=== PATIENT | male | born 1975 | race Caucasian/White ===

== ENCOUNTER 2016-10-08 13:11 | Inpatient (IN) | payer SELFPAY ==
[2016-10-08] VITALS: BP 104/55
[~2016-10-08] VITALS: Ht 182.9 cm; Wt 105.1 kg
[2016-10-08 14:28] LABS: BASOPHILS 0.2 % (0-2); EOSINOPHILS 0.7 % (0-7); HEMOGLOBIN 12.7 g/dL (13.5-17.5); IMMATURE GRANULOCYTES 0.6 % (0-5); LYMPHOCYTES 19.4 % (15-50); MCH 30.2 pg (26.0-34.0); MCHC 33.4 g/dL (31.0-37.0); MCV 90.5 fL (80.0-100.0); MEAN PLATELET VOLUME 11.6 fL (7.4-10.4); MONOCYTES 6.4 % (2-11); NEUTROPHILS 72.7 % (40-80); RDW 14.2 % (11.5-14.5); WBC 15.2 10x3/uL (4.8-10.8)
[2016-10-08 14:29] LABS: PLATELET COUNT 286 10x3/uL (130-400)
[2016-10-08 14:50] LABS: ALBUMIN 4.1 g/dL (3.4-5.0); ANION GAP 19.9 mmol/L (8-16); BILIRUBIN - TOTAL 0.44 mg/dL (0.2-1.3); CALCIUM 9.5 mg/dL (8.5-10.1); CARBON DIOXIDE 20.5 mmol/L (21.0-32.0); CREATININE - SERUM 5.2 mg/dL (0.6-1.3); POTASSIUM - SERUM 5.4 mmol/L (3.5-5.1); PROTEIN - SERUM 8.6 g/dL (6.4-8.2)
[2016-10-08 14:55] LABS: APPEARANCE CLEAR (CLEAR); BILIRUBIN NEGATIVE (NEGATIVE); COLOR YELLOW (YELLOW); GLUCOSE NEGATIVE (NEGATIVE); KETONE NEGATIVE (NEGATIVE); LEUKOCYTE ESTERASE TRACE (NEGATIVE); NITRITE NEGATIVE (NEGATIVE); PROTEIN NEGATIVE (NEGATIVE); SPECIFIC GRAVITY 1.025 (1.005-1.020); UROBILINOGEN NORMAL (NORMAL)
[2016-10-08 14:56] LABS: RED CELLS - URINE 0-5 /hpf (0-5); WHITE CELLS - URINE 0-5 /hpf (0-5)
[2016-10-08 14:57] LABS: BACTERIA MANY /hpf (NONE SEEN)
--- NOTE | 2016-10-08 17:35 | NUR ---
ER NURSE ATTEMPTED TO CALL REPORT HOWEVER ROOM IS NOT STRIPPED OR CLEANED OR READY TO HOLD A PT. POLITELY ASKED NURSED IF I COULD CALL WHEN ROOM WAS READY AND PT STATED "WELL IM DEALING WITH A [facility] PT RIGHT NOW SO I DONT KNOW WHEN I WILL EVEN HAVE TIME" AND THEN PROCEDED TO HANG UP ON ME.
--- NOTE | 2016-10-08 18:11 | NUR ---
SHIFT REPORT ACCEPTED VIA [facility] ER NURSE AND AWAITING PT TO COME TO ROOM.
[2016-10-08] MEDS ORDERED: PRINIVIL20 MG PO (18:34)
[2016-10-08] MEDS ORDERED: NORVASC5 MG PO (18:35)
[2016-10-08 18:39] VITALS: BP 100/45
[2016-10-08 19:01] LABS: UDS - AMPHET NEGATIVE QUAL (NEGATIVE); UDS - BARB NEGATIVE QUAL (NEGATIVE); UDS - BENZO NEGATIVE QUAL (NEGATIVE); UDS - COCAINE NEGATIVE QUAL (NEGATIVE); UDS - METH NEGATIVE QUAL (NEGATIVE); UDS - OPIATE NEGATIVE QUAL (NEGATIVE); UDS - PCP NEGATIVE QUAL (NEGATIVE); UDS - THC POSITIVE QUAL (NEGATIVE)
--- NOTE | 2016-10-08 19:15 | NUR ---
BEDSIDE REPORT WITH AFTAB. PT RESTING IN BED WITH AT BED SIDE. IV FLUIDS INFUSING NS TO LEFT FOREARM AT 125. PT DENIES ANY NEEDS. WALKING IN ROOM WITHOUT DIFFICULTY. DENIES FEELING DIZZY. WALKS HALLS WITH . PT DENIES ANY NEEDS. NO S/S OF DISTRESS. WILL CONTINUE TO MONITOR
--- NOTE | 2016-10-08 19:45 | NUR ---
LORA GIVES VERBAL ORDER TO INCREASE NS FLUIDS TO 150ML/HR.
--- NOTE | 2016-10-08 19:59 | NUR ---
PAGEMatty VINSON SWEAT BOX ATTENDANT TO CLARIFY VERBAL ORDER. ORDER WAS ADD ONE AMP OF SODIUM BICARB TO NS FLUID ON NEXT BAG ADMINISTRATION NEED MEQ CLARIFIED.
--- NOTE | 2016-10-08 21:55 | NUR ---
PT RESTING IN BED NS FLUIDS GOING @150 TO LEFT FOREARM IV. AT BEDSIDE PT DENIES ANY NEES. NO S/S OF DISTRESS. WILL CONTINUE TO MONIOR
[2016-10-08 21:59] VITALS: Ht 182.9 cm; Wt 105.1 kg
[2016-10-09 04:51] VITALS: BP 115/72
[2016-10-09 06:22] LABS: BASOPHILS 0.2 % (0-2); EOSINOPHILS 1.8 % (0-7); HEMATOCRIT 34.2 % (42.0-54.0); HEMOGLOBIN 11.4 g/dL (13.5-17.5); IMMATURE GRANULOCYTES 0.8 % (0-5); LYMPHOCYTES 31.1 % (15-50); MCH 30.7 pg (26.0-34.0); MCHC 33.3 g/dL (31.0-37.0); MCV 92.2 fL (80.0-100.0); MEAN PLATELET VOLUME 11.3 fL (7.4-10.4); MONOCYTES 7.9 % (2-11); NEUTROPHILS 58.2 % (40-80); PLATELET COUNT 232 10x3/uL (130-400); RBC 3.71 10x6/uL (4.20-6.10); RDW 14.4 % (11.5-14.5)
[2016-10-09 06:45] LABS: ANION GAP 13.9 mmol/L (8-16); CALCIUM 7.9 mg/dL (8.5-10.1); CARBON DIOXIDE 19.9 mmol/L (21.0-32.0); POTASSIUM - SERUM 5.8 mmol/L (3.5-5.1); PROTEIN - SERUM 6.8 g/dL (6.4-8.2)
[2016-10-09 06:50] LABS: CREATININE - SERUM 3.4 mg/dL (0.6-1.3)
--- NOTE | 2016-10-09 07:45 | NUR ---
INTRODUCED MYSELF TO PT PRIMARY RN FOR TODAYS SHIFT. PT IS A&O SITTING UP IN BED RESTING QUIETLY. SHIFT ASSESSMENT COMPLETED. PT STATES HE SLEPT "ALRIGHT" AND IS HOPING HIS KIDNEYS ARE IMPROVING SO HE CAN BE DISCHARGED. SPOUSE AT BEDSIDE. NO FURTHER NEEDS AT THIS TIME. CL IN REACH, BED IN LOWEST, SIDE RAILS X2. WILL CPOC.
[2016-10-09 09:07] VITALS: BP 109/54
--- NOTE | 2016-10-09 11:00 | NUR ---
OFFERED PT SCDS FOR DVT PROPHYLACTICS AND PT REFUSED R/T BEING AMBULATORY FREQUENTLY AND NOT WANTING "TIED DOWN"
[2016-10-09 12:08] VITALS: BP 110/53
--- NOTE | 2016-10-09 15:56 | NUR ---
RENAL DOCTORS AND PRIMARY VERY UPSET INQUIRING WHY ULTRASOUND FOR KIDNEYS HAS NOT BEEN COMPLETED. IT WAS ORDERED 10/08 @192 AND STILL NOT COMPLETED. CALLED DEPARTMENT AND THEY ARE COMING TO DO A STAT US OF KIDNEYS AND WILL TRY TO FIND OUT WHY IT WASNT DONE.
[2016-10-09 16:32] VITALS: BP 112/63
--- NOTE | 2016-10-09 16:32 | NUR ---
CHANGED OUT PTS NS AND TUBING AND REPLACED WITH SODIUM BICARB ORDERED. PT SITTING UP IN BED RESTING QUIETLY DENIES ANY CURRENT PAIN OR NEEDS. URINE SPECIMEN NEEDED AND PT VERBALIZED UNDERSTANDING AND WHEN PROVIDE WHEN ABLE.
[2016-10-09 23:32] VITALS: BP 118/66
--- NOTE | 2016-10-10 02:36 | NUR ---
RECEIVED IN BEDROOM. LAYING WITH EYES CLOSED. NO SIGNS OF DISTRESS. CALL LIGHT IN REACH.
[2016-10-10 06:04] LABS: BASOPHILS 0.1 % (0-2); HEMATOCRIT 33.4 % (42.0-54.0); IMMATURE GRANULOCYTES 0.4 % (0-5); MCH 30.1 pg (26.0-34.0); MCHC 32.9 g/dL (31.0-37.0); MCV 91.5 fL (80.0-100.0); MEAN PLATELET VOLUME 11.5 fL (7.4-10.4); MONOCYTES 7.9 % (2-11); NEUTROPHILS 55.6 % (40-80); PLATELET COUNT 225 10x3/uL (130-400); RBC 3.65 10x6/uL (4.20-6.10); RDW 14.2 % (11.5-14.5)
[2016-10-10 06:24] VITALS: BP 110/57
[2016-10-10 06:25] LABS: ALBUMIN 2.9 g/dL (3.4-5.0); BILIRUBIN - TOTAL 0.4 mg/dL (0.2-1.3); MAGNESIUM - SERUM 1.9 mg/dL (1.8-2.4); PHOSPHOROUS 3.3 mg/dL (2.5-4.9); PROTEIN - SERUM 6.5 g/dL (6.4-8.2)
[2016-10-10 06:29] LABS: ANION GAP 13.3 mmol/L (8-16); CARBON DIOXIDE 25.4 mmol/L (21.0-32.0); CREATININE - SERUM 2.4 mg/dL (0.6-1.3); POTASSIUM - SERUM 4.7 mmol/L (3.5-5.1)
--- NOTE | 2016-10-10 08:15 | NUR ---
PT RESTING IN BED. PT LEFT FA IV RUNNING SOD BICARB @ 100. PT DENIES NEEDS. WCTM.
[2016-10-10 08:42] VITALS: BP 107/46
[2016-10-10 11:57] VITALS: BP 108/66
[2016-10-10 13:48] LABS: ANION GAP 10.2 mmol/L (8-16); CARBON DIOXIDE 29.4 mmol/L (21.0-32.0); CREATININE - SERUM 2.1 mg/dL (0.6-1.3); POTASSIUM - SERUM 4.6 mmol/L (3.5-5.1)
--- NOTE | 2016-10-10 20:20 | NUR ---
Patient Name: BERYL BRANDON Admission Status: ER Accout number: [id number] Admission Date: 10-09-2016 : 1975 Admission Diagnosis: Attending: ERICK Current LOS: 1 Anticipated DC Date: 10-10-2016 Planned Disposition: Home Primary Insurance: UNINSURED DISCOUNT PLAN LATE ENTRY: Discharge Planning Comments: * Is the patient Alert and Oriented? Yes 0 * How many steps to enter\exit or inside your home? 4 0 * PCP DR. CLAYTON MAGUIRE 0 * Pharmacy [facility] [address] 0 * Preadmission Environment Home with Family 0 * ADLs Independent 0 * Equipment None 0 * Other Equipment NO MEDICAL EQUIPMENT PROVIDER PREFERENCE 0 * List name and contact numbers for known caregivers / representatives who currently or will assist patient after discharge: HAYLEY BARAHONA, 0 * Community resources currently utilized None 0 * Please name any agencies selected above. NONE 0 * Additional services required to return to the preadmission environment? No 0 * Can the patient safely return to the preadmission environment? Yes 0 * Has this patient been hospitalized within the prior 30 days at any hospital? No 0 CM MET WITH PT IN ROOM TO DISCUSS DISCHARGE PLANNING AND NEEDS. PT REPORTS LIVING AT HOME INDEPENDENTLY WITH ROQUE. PT HAS NO MEDICAL EQUIPMENT AND NO OUTSIDE SERVICES ASSISTING IN THE HOME. CM DISCUSSED AVAILABILITY OF HOME HEALTH, REHAB SERVICES AND MEDICAL EQUIPMENT. PT DENIES DISCHARGE NEEDS, REPORTS HAYLEY WILL PICK HIM UP FOR DISCHARGE HOME. PT HAS FILLED OUT MEDICAID APPLICATION WITH HOSPITAL ASSISTANCE AND WILL FOLLOW UP WITH THE [facility] OFFICE. PT REPORTS HE PLANS TO HAVE HEALTH INSURANCE ONCE , THROUGH 'S EMPLOYER. Maintenance Supervisor Electrical: Cory Jenkins
== END 2016-10-10 17:13 | disposition home or self-care (01) | DRG 683 ==
LOC: D.ER 13:11 → D.M2 16:12 → OBSVTIME 16:12 → D.M2 10-09 15:16
PROVIDERS: Emergency Medicine; ADMIT Family Medicine
DX: N17.9 Acute kidney failure, unspecified (principal); Q61.2 Polycystic kidney, adult type; F17.203 Nicotine dependence unspecified, with withdrawal; E87.2 Acidosis; I12.9 Hypertensive chronic kidney disease with stage 1 through stage 4 chronic kidney disease, or unspecified chronic kidney disease; N18.3 Chronic kidney disease, stage 3 (moderate); E86.0 Dehydration; I95.9 Hypotension, unspecified; E87.5 Hyperkalemia; R55 Syncope and collapse; K08.89 Other specified disorders of teeth and supporting structures; F12.90 Cannabis use, unspecified, uncomplicated; D63.1 Anemia in chronic kidney disease

== ENCOUNTER 2018-05-13 06:49 | Emergency (ER) | payer SELFPAY ==
[~2018-05-13] VITALS: Ht 182.9 cm; Wt 102.7 kg
[~2018-05-13 06:49] MED LIST: NORVASC5 MG PO; PRINIVIL20 MG PO
[2018-05-13 06:58] VITALS: Ht 182.9 cm; Wt 102.7 kg
[2018-05-13] MEDS ORDERED: 3 BP MEDS (07:00)
[2018-05-13] MEDS ORDERED: CYCLOBENZAPRINE10 MG PO (07:27)
[2018-05-13 08:08] LABS: ANION GAP 14.5 mmol/L (8-16); CALCIUM 8.4 mg/dL (8.5-10.1); CARBON DIOXIDE 24.1 mmol/L (21.0-32.0); CREATININE - SERUM 2.3 mg/dL (0.6-1.3); POTASSIUM - SERUM 4.6 mmol/L (3.5-5.1)
[2018-05-13 08:12] LABS: BASOPHILS 0.2 % (0-2); EOSINOPHILS 3.3 % (0-7); HEMATOCRIT 42.3 % (42.0-54.0); HEMOGLOBIN 14.1 g/dL (13.5-17.5); IMMATURE GRANULOCYTES 0.5 % (0-5); LYMPHOCYTES 25.1 % (15-50); MCH 30.3 pg (26.0-34.0); MCHC 33.3 g/dL (31.0-37.0); MCV 90.8 fL (80.0-100.0); MEAN PLATELET VOLUME 11.5 fL (7.4-10.4); MONOCYTES 6.2 % (2-11); NEUTROPHILS 64.7 % (40-80); RBC 4.66 10x6/uL (4.20-6.10); WBC 11.9 10x3/uL (4.8-10.8)
[2018-05-13 08:15] LABS: PLATELET COUNT 298 10x3/uL (130-400)
[2018-05-13 08:40] VITALS: BP 135/88
== END 2018-05-13 08:42 | disposition home or self-care (01) ==
LOC: D.ER 06:49
PROVIDERS: Emergency Medicine
DX: Q61.3 Polycystic kidney, unspecified (principal); I12.9 Hypertensive chronic kidney disease with stage 1 through stage 4 chronic kidney disease, or unspecified chronic kidney disease; N18.9 Chronic kidney disease, unspecified; S90.32XA Contusion of left foot, initial encounter; W22.8XXA Striking against or struck by other objects, initial encounter; Y93.89 Activity, other specified; Y92.019 Unspecified place in single-family (private) house as the place of occurrence of the external cause; M79.7 Fibromyalgia; R73.9 Hyperglycemia, unspecified

== ENCOUNTER 2019-03-24 18:27 | Emergency (ER) | payer SELFPAY ==
[~2019-03-24] VITALS: Ht 182.9 cm; Wt 102.3 kg
[~2019-03-24 18:27] MED LIST changes: +3 BP MEDS; +CYCLOBENZAPRINE10 MG PO
[2019-03-24 18:40] VITALS: Ht 182.9 cm; Wt 102.3 kg
[2019-03-24 18:55] LABS: BASOPHILS 0.1 % (0-2); EOSINOPHILS 0.8 % (0-7); HEMATOCRIT 42.3 % (42.0-54.0); HEMOGLOBIN 14.2 g/dL (13.5-17.5); IMMATURE GRANULOCYTES 0.4 % (0-5); LYMPHOCYTES 17.6 % (15-50); MCH 29.9 pg (26.0-34.0); MCHC 33.6 g/dL (31.0-37.0); MCV 89.1 fL (80.0-100.0); MEAN PLATELET VOLUME 10.7 fL (7.4-10.4); MONOCYTES 7.6 % (2-11); NEUTROPHILS 73.5 % (40-80); PLATELET COUNT 285 10x3/uL (130-400); RBC 4.75 10x6/uL (4.20-6.10); RDW 13.6 % (11.5-14.5); WBC 16.4 10x3/uL (4.8-10.8)
[2019-03-24 18:59] LABS: APPEARANCE CLEAR (CLEAR); BILIRUBIN NEGATIVE (NEGATIVE); COLOR STRAW (YELLOW); GLUCOSE 100 mg/dL (NEGATIVE); KETONE NEGATIVE (NEGATIVE); NITRITE NEGATIVE (NEGATIVE); PROTEIN 2+ mg/dL (NEGATIVE); SPECIFIC GRAVITY 1.015 (1.005-1.020); UROBILINOGEN NORMAL (NORMAL)
[2019-03-24 19:01] LABS: BACTERIA FEW /hpf (NEGATIVE); EPITHELIAL CELLS NSEEN /hpf (0-5); RED CELLS - URINE 0-5 /hpf (0-5); WHITE CELLS - URINE 0-5 /hpf (NEGATIVE)
[2019-03-24 19:10] LABS: ANION GAP 14.6 mmol/L (8-16); CALCIUM 8.9 mg/dL (8.5-10.1); CARBON DIOXIDE 27.4 mmol/L (21.0-32.0); CREATININE - SERUM 2.8 mg/dL (0.6-1.3)
[2019-03-24 19:16] LABS: ALBUMIN 3.4 g/dL (3.4-5.0); BILIRUBIN - TOTAL 0.4 mg/dL (0.2-1.3); PROTEIN - SERUM 8.4 g/dL (6.4-8.2)
[2019-03-24 19:39] LABS: UDS - AMPHET NEGATIVE QUAL (NEGATIVE); UDS - BARB NEGATIVE QUAL (NEGATIVE); UDS - BENZO NEGATIVE QUAL (NEGATIVE); UDS - COCAINE NEGATIVE QUAL (NEGATIVE); UDS - OPIATE NEGATIVE QUAL (NEGATIVE); UDS - PCP NEGATIVE QUAL (NEGATIVE); UDS - THC POSITIVE QUAL (NEGATIVE)
[2019-03-24 20:12] LABS: LIPASE 140 U/L (73-393); PRO BNP 49 pg/mL (0-125); THYROID STIMULATING HORMONE 2.09 uIU/mL (0.36-3.74); TROPONIN-I < 0.017 ng/mL (0.000-0.060)
[2019-03-24] MEDS ORDERED: CATAPRES0.1 MG PO (21:26)
[2019-03-24 21:43] VITALS: BP 178/100
== END 2019-03-24 21:43 | disposition home or self-care (01) ==
LOC: D.ER 18:27
PROVIDERS: Emergency Medicine; Family Medicine
DX: I10 Essential (primary) hypertension (principal); N28.9 Disorder of kidney and ureter, unspecified; Z72.0 Tobacco use; Q61.3 Polycystic kidney, unspecified